=== PATIENT | female | born 1960 | race Hispanic/Latino ===

== ENCOUNTER 2021-08-17 07:08 | Emergency (ER) | payer BC, OTHER ==
[~2021-08-17] VITALS: Ht 157.5 cm; Wt 49.9 kg
[2021-08-17 07:57] LABS: BASOPHILS % (AUTO) 1.4 % (0.0-5.0); EOSINOPHILS % (AUTO) 7.8 % (0.0-8.0); HEMATOCRIT 36.2 % (36-48); LYMPHOCYTES % (AUTO) 33.6 % (21.0-51.0); MEAN CORPUSCULAR HEMOGLOBIN 28.6 pg (27.0-33.0); MEAN CORPUSCULAR HGB CONC 33.1 g/dL (32.0-36.0); MEAN CORPUSCULAR VOLUME 86.4 fL (79-99); MONOCYTES % (AUTO) 7.8 % (3.0-13.0); NEUTROPHILS % (AUTO) 49.1 % (40.0-77.0); PLATELET COUNT (AUTO) 327 K/uL (130-400); RED BLOOD CELL COUNT(AUTO) 4.19 MIL/uL (4.00-5.50); RED CELL DISTRIBUTION WIDTH 11.8 % (11.0-15.5); WHITE BLOOD COUNT (AUTO) 7.4 K/uL (4.8-10.8)
[2021-08-17 08:09] LABS: CREATININE 0.7 mg/dL (0.5-1.5)
[2021-08-17 08:13] LABS: ALBUMIN 3.8 g/dL (3.5-5.0); BILIRUBIN,TOTAL 0.2 mg/dL (0.2-1.0); TOTAL PROTEIN, SERUM 7.7 g/dL (6.0-8.3)
[2021-08-17] MEDS ORDERED: FLUT16H NASAL (08:41)
[2021-08-17] MEDS ORDERED: ATOR40TA71 PO (08:41)
[2021-08-17 08:59] VITALS: BP 110/59
== END 2021-08-17 09:00 | disposition home or self-care (01) ==
LOC: EDH 07:08
DX: R10.13 Epigastric pain (principal); E78.5 Hyperlipidemia, unspecified
CPT/HCPCS: 36415; 80053; 83690; 84484; 85025

== ENCOUNTER 2023-12-17 10:06 | Emergency (ER) | payer OTHER ==
[~2023-12-17] VITALS: Ht 152.4 cm; Wt 54.0 kg
[~2023-12-17 10:06] MED LIST: ATOR40TA71 PO; FLUT16H NASAL
[2023-12-17] MEDS: NEOMY SULF/BACITRA/POLYMYXIN B 1 EACH PACKET TP ONE (11:59)
[2023-12-17] MEDS: ACETAMINOPHEN 500 MG TABLET PO ONE (12:01)
[2023-12-17 12:03] VITALS: BP 133/68; PULSE 78; RESP 16; O2SAT 99
== END 2023-12-17 12:04 | disposition home or self-care (01) ==
LOC: EDH 10:06
DX: S01.01XA Laceration without foreign body of scalp, initial encounter (principal); S09.90XA Unspecified injury of head, initial encounter; E78.00 Pure hypercholesterolemia, unspecified; W06.XXXA Fall from bed, initial encounter; Y93.89 Activity, other specified; Y92.89 Other specified places as the place of occurrence of the external cause; Y99.8 Other external cause status
CPT/HCPCS: 12001